=== PATIENT | female | born 1985 | race American Indian/Alaskan Native ===

== ENCOUNTER 2016-06-28 17:52 | Emergency (ER) | payer MEDICAID ==
[2016-06-28 18:13] VITALS: BMI 27.4
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
[2016-06-28 19:29] VITALS: BP 118/62; PULSE 75; RESP 19; TEMP 98; O2SAT 99
--- NOTE | 2016-06-29 10:25 | RAD ---
PROCEDURE: Radiographs of the Lumbar Spine. HISTORY: pain COMPARISON: No prior. FINDINGS: BONES: Normal alignment. No listhesis. No fracture. DISC SPACES: Disc space heights maintained. . Facet joints are slightly prominent at the L5-S1 level. OTHER FINDINGS: None. IMPRESSION: No acute compression fractures. Minor facet overgrowth L5-S1 level however no additional significant degenerative spondylosis.
== END 2016-06-28 19:35 | disposition home or self-care (01) ==
LOC: ED 17:52
DX: M54.5 Low back pain (principal)